=== PATIENT | female | born 1980 | race Caucasian/White ===

== ENCOUNTER → 2020-02-11 10:45 | Outpatient (BNVA) | payer BC, SELFPAY | PROVIDERS: Family Provider Nurse Practitioner Family; Referring Provider Family Medicine; Visit Provider Specialist | DX: M25.521 Pain in right elbow (principal); M25.531 Pain in right wrist; G89.29 Other chronic pain | CPT/HCPCS: 73080; 73110 ==

== ENCOUNTER 2022-03-29 15:46 | Emergency (ER) | payer BC, SELFPAY ==
[2022-03-29 16:03] VITALS: BP 144/83; PULSE 57; RESP 18; TEMP 36.4; O2SAT 98; BMI 40.7
--- NOTE | 2022-03-29 16:14 | ED_ITS ---
HPI - Abdominal Pain General: Chief Complaint: Abdominal Pain Stated Complaint: abd pain Time Seen by Provider: 03/29/22 16:13 Source: patient Mode of arrival: ambulatory Limitations: no limitations History of Present Illness: Patient is a very nice 41-year-old female presents to ED today with a complaint of right upper abdominal pain that she initially began noticing yesterday after eating lunch. Patient states pain came on fairly suddenly and progressively worsened. She does states she has had some waxing and waning periods where the pain was not severe but always seemed to exacerbate after eating. She states eating has made her feel incredibly nauseous. She has not had any active episodes of emesis. She has not noticed any changes to her bowel movements. Pain seems to be localized to the right upper quadrant with radiation up into her right shoulder and into her back. She does have a history of GERD in which she treats with omeprazole but states this feels differently. Patient has not been running fevers. She does not complain of chest pain, shortness of breath, difficulty breathing. MD elicited complaint: abdominal pain Pertinent past history: none Onset (ago): day(s) (yesterday) Pain Consistency: colicky Location: RUQ Quality: sharp Radiation: epigastric, back and other (R shoulder) Migration to: no migration Exacerbating factors: eating Relieving factors: nothing Associated Symptoms: Reports belching and nausea; Denies change in bowel habits, chills, diarrhea, dysuria, fever(s), hematochezia, hematuria, melena and vomiting Related Data: Patient : No Review of Systems Const: Denies: fever(s), chills, body aches, fatigue or malaise Card: Denies: chest pain Resp: Denies: dyspnea GI: Reports: abdominal pain, nausea and belching; Denies: vomiting, diarrhea, change in bowel habits, pain on defecation, hematochezia or melena : Denies: flank pain, difficulty voiding, dysuria or hematuria Musc: Denies: neck pain, back pain, extremity pain or joint pain Skin/Breast: Denies: rash Neuro: Denies: headache(s) or dizziness PFSH ED PFSH: Social History Smoking and tobacco status: current every day smoker cigarettes Alcohol intake: current Alcohol intake frequency: holidays/special occasions only Physical Exam Const: COMMON NORMALS: no acute distress, patient oriented x3, no limitations and alert GENERAL APPEARANCE: cooperative NUTRITIONAL APPEARANCE: obese morbidly obese ORIENTATION/CONSCIOUSNESS: Yes awake, Yes oriented to person, Yes oriented to place and Yes oriented to time Resp: COMMON NORMALS: normal respiratory effort and clear to auscultation bilaterally AUSCULTATION: clear to auscultation bilaterally Cardio: COMMON NORMALS: regular rate and regular rhythm RATE: regular rate RHYTHM: regular rhythm GI: COMMON NORMALS: Normal to inspection, nondistended, normoactive bowel sounds present, Soft to palpation and no masses INSPECTION: Yes normal to inspection AUSCULTATION: Yes normoactive bowel sounds PALPATION: Yes Soft to palpation, Yes Tenderness to palpation present (GI) (+ Zamora's ) Details: RUQ, No Guarding due to palpation present (GI) and No Rigid due to palpation : COMMON NORMALS: Yes no CVA tenderness BLADDER/KIDNEY EXAM: Yes no CVA tenderness Back/Pelvis: COMMON NORMALS: no CVA tenderness, thoracic and lumbar spine normal to inspection, no thoracic nor lumbar tenderness and thoraco-lumbar ROM normal Extremity: COMMON NORMALS: normal to inspection GENERAL: Yes normal exam except as noted Neuro: AG COMA SCALE: document GCS findings Ag coma scale eye opening: Spontaneous [place] coma scale verbal response: Orientated [place] coma scale motor response: Obey commands Ag coma scale total score: 15 COMMON NORMALS: patient oriented x3 SENSORIUM/ORIENTATION: Yes alert, Yes oriented to person, Yes oriented to place and Yes oriented to time Skin: COMMON NORMALS: no rashes or lesions noted GENERAL SKIN EXAM: no rashes or lesions noted Course Vital Signs: Vital signs: Vital Signs Temperature 97.5 F L 03/29/22 16:28 Pulse Rate 57 L 03/29/22 16:28 Respiratory Rate 18 03/29/22 16:28 Blood Pressure 144/83 03/29/22 16:28 Pulse Oximetry 98 03/29/22 16:28 Oxygen Delivery Me thod 03/29/22 16:28 MDM - Abdominal Pain Medical Decision Making Patient is a nice 41-year-old female here with right upper quadrant pain. History and physical exam is consistent with classic biliary colic. Her vital signs are stable. Her blood work is unremarkable. Her gallbladder ultrasound shows no acute findings. I think patient would benefit from general surgery fo llow-up and evaluation for elective cholecystectomy if symptoms persist. Recommend extremely bland diet until seen by them. We will provide her with pain/nausea medication she can use as needed. Lab Data : 03/29/22 16:27 03/29/22 16: Labs/Radiology: Radiology Impressions Gallbladder Ultrasound 03/29/22 16:21 IMPRESSION: No acute findings. Laboratory Results WBC 9.9 10^3/uL (4.0-10.0) 03/29/22 16: RBC 4.26 10^6/uL (4.1-5.3) 03/29/22 16: Hgb 13.3 g/dL (11.5-15.3) 03/29/22 16: Hct 38.7 % (37.0-47.0) 03/29/22 16: MCV 90.8 fl (81-99) 03/29/22 16: MCH 31.2 pg (28.0-34.0) 03/29/22 16: MCHC 34.4 g/dL (30.0-36.0) 03/29/22 16: RDW 13.3 % (12.1-15.1) 03/29/22 16: Plt Count 281 10^3/cmm (130-400) 03/29/22 16: MPV 11.1 fL (7.4-10.4) H 03/29/22 16: Neut % (Auto) 57.4 % 03/29/22 16: Lymph % (Auto) 31.5 % 03/29/22 16: [place] % (Auto) 7.3 % 03/29/22 16: Eos % (Auto) 2.8 % 03/29/22 16: Baso % (Auto) 0.8 % 03/29/22 16: Neut # (Auto) 5.68 10^3/uL (1.8-7.7) 03/29/22 16: Lymph # (Auto) 3.1 10^3/uL (0.8-4.8) 03/29/22 16: [place] # (Auto) 0.7 10^3/uL (0.2-0.9) 03/29/22 16:27 Eos # (Auto) 0.3 10^3/uL (0.0-0.8) 03/29/22 16:27 Baso # (Auto) 0.1 10^3/uL (0.0-0.1) 03/29/22 16:27 Nucleated RBC % (auto) 0 % 03/29/22 16: Nucleated RBCs # 0.0 /100WBC 03/29/22 16:27 Sodium 141 mmol/L (136-145) 03/29/22 16:27 Potassium 4.4 mmol/L (3.5-5.1) 03/29/22 16:27 Chloride 106 mmol/L (98-107) 03/29/22 16: Carbon Dioxide 27 mmol/L (22-29) 03/29/22 16: Anion Gap 12.4 (5-19) 03/29/22 16:27 BUN 9 mg/dL (6-20) 03/29/22 16: Creatinine 0.7 mg/dL (0.5-0.9) 03/29/22 16: GFR Calculation 93.2 mL/min (90-130) 03/29/22 16:27 Glucose 93 mg/dL (65-115) 03/29/22 16: Calculated Osmolality 290 mOsm/kg (285-295) 03/29/22 16: Calcium 8.9 mg/dL (8.5-10.5) 03/29/22 16: Total Bilirubin 0.2 mg/dL (0.15-1.2) 03/29/22 16: AST 70 U/L (0-32) H 03/29/22 16:27 ALT 22 U/L (0-33) 03/29/22 16:27 Alkaline Phosphatase 44 U/L (35-105) 03/29/22 16:27 Total Protein 6.8 g/dL (6.6-8.7) 03/29/22 16: Albumin 4.1 g/dL (3.5-5.2) 03/29/22 16: Globulin 2.7 g/dL (1.3-4.6) 03/29/22 16: Lipase 29 U/L (13-60) 03/29/22 16:27 HCG, Qual Negative (Negative) 03/29/22 16:27 Urine Color Yellow (Yellow) 03/29/22 16:50 Urine Appearance Clear (CLEAR) 03/29/22 16:50 Urine pH 7 (5-7) 03/29/22 16:50 Ur Specific [place] 1.020 (1.005-1.030) 03/29/22 16:50 Urine Protein Neg (Negative) 03/29/22 16:50 Urine Glucose (UA) Norm (Normal) 03/29/22 16:50 Urine Ketones Negative (Negative) 03/29/22 16:50 Urine Blood 2+ (Negative) H 03/29/22 16:50 Urine Nitrate Negative (Negative) 03/29/22 16:50 Urine Bilirubin Neg (Negative) 03/29/22 16:50 Urine Urobilinogen Norm mg/dL (Negative) 03/29/22 16:50 Ur Leukocyte Esterase Negative (Negative) 03/29/22 16:50 Urine RBC 0-4 /hpf (0-2) H 03/29/22 16:50 Urine WBC 5-10 /hpf (0-5) H 03/29/22 16:50 Ur Squamous Epith Cells 5-10 /hpf (0-5) H 03/29/22 16:50 Amorphous Sediment Not Reportable 03/29/22 16:50 Urine Bacteria 1+ /hpf (NONE) H 03/29/22 16:50 Hyaline Casts 0-4 /lpf H 03/29/22 16:50 Urine Mucus 1+ /hpf 03/29/22 16:50 Discharge Plan Discharge Patient Disposition: Home Clinical Impression: Biliary colic Condition: Stable Prescriptions: New hydrocodone-acetaminophen 5-325 mg tablet 1 tab PO .q 4-6 PRN (Reason: pain) Qty: 20 0RF ondansetron 4 mg tablet,disintegrating 4 mg PO Q8H PRN (Reason: nausea and vomiting) Qty: 14 0RF No Action pantoprazole [Protonix] 40 mg tablet,delayed release (DR/EC) 40 mg PO DAILY methocarbamol 750 mg tablet 750 mg PO TID pregabalin [Lyrica] 50 mg capsule 50 mg PO TID phentermine 37.5 mg capsule 37.5 mg PO DAILY Rx Instructions: must administer 30 minutes before or 1-2 hours after breakfast ketorolac 10 mg tablet 10 mg PO Q6H PRN butalbital-acetaminophen 25-325 mg tablet 2 tab PO Q4H PRN lidocaine 5 % adhesive patch,medicated 1 patch TOPICAL DAILY Rx Instructions: leave on most painful area for up to 12 hrs Discharge Orders: Discharge ED (Routine); Ordered 03/29/22 Ordered By: Silvia Rodriguez Referrals: Luis Manuel Tripathi CPNP [Primary Care Provider] - Patient Instructions: Biliary Colic (ED), Opioid Safety Activity Restrictions/Additional Instructions: As we discussed you need to do as a bland of a diet as possible until seen by g eneral surgery. This includes no spicy, greasy, fatty foods. You may use pain and nausea medications as needed. Case management should contact you tomorrow or Sunday to set you up with your follow-up general surgery appointment. You need to return to the emergency department immediately for worsening or uncontrollable abdominal pain, repetitive episodes of vomiting or diarrhea, fevers, yellowing to your skin or eyes or any other concerns you may have. I hope you begin to feel better soon. Coding Level of Care Code ED [employer] for [employer] Exam Comprehensive
--- NOTE | 2022-03-29 16:21 | USR_ITS ---
PROCEDURE INFORMATION: Exam: US Abdomen, Limited; Right Upper Quadrant Exam date and time: 03/29/2022 4:28 PM Age: 41 years old Clinical indication: Nausea and vomiting; Patient HX: 24 hrs n/v. Abd tender; Additional info: Ruq pain, n/v TECHNIQUE: Imaging protocol: Real time ultrasound of the abdomen with image documentation. Limited exam focused on the right upper quadrant. COMPARISON: US gall bladder [id number] 02/01/2017 5:06 PM FINDINGS: Liver: Normal. No masses. Gallbladder: Normal. No gallstones. There is no gallbladder wall thickening. Biliary ducts: Normal. No stones. No dilation. Pancreas: Visualized pancreas is unremarkable. Right kidney: The right kidney measures 11.8 cm in length. No mass. No hydronephrosis. US/US gall bladder [id number] IMPRESSION: No acute findings.
[2022-03-29 16:28] VITALS: BP 144/83; PULSE 57; RESP 18; TEMP 36.4; O2SAT 98
[2022-03-29 16:34] LABS: Basophils # 0.1 10^3/uL (0.0-0.1); Basophils % 0.8 %; Eosinophils # 0.3 10^3/uL (0.0-0.8); Eosinophils % 2.8 %; Hematocrit 38.7 % (37.0-47.0); Hemoglobin 13.3 g/dL (11.5-15.3); Lymphocytes # 3.1 10^3/uL (0.8-4.8); Lymphocytes % 31.5 %; Mean Corpuscular HGB Conc 34.4 g/dL (30.0-36.0); Mean Corpuscular Hemoglobin 31.2 pg (28.0-34.0); Mean Corpuscular Volume 90.8 fl (81-99); Mean Platelet Volume 11.1 fL (7.4-10.4); Monocytes # 0.7 10^3/uL (0.2-0.9); Monocytes % 7.3 %; Neutrophils # 5.68 10^3/uL (1.8-7.7); Neutrophils % 57.4 %; Nucleated Red Blood Cells % 0 %; Platelet Count 281 10^3/cmm (130-400); Red Blood Count 4.26 10^6/uL (4.1-5.3); Red Cell Distribution Width 13.3 % (12.1-15.1); White Blood Count 9.9 10^3/uL (4.0-10.0)
[2022-03-29 16:55] LABS: HCG, Serum Qual Negative (Negative)
[2022-03-29 16:56] LABS: Alanine Aminotransferase 22 U/L (0-33); Albumin Level 4.1 g/dL (3.5-5.2); Alkaline Phosphatase 44 U/L (35-105); Anion Gap 12.4 (5-19); Aspartate Amino Transferase 70 U/L (0-32); Blood Urea Nitrogen 9 mg/dL (6-20); Calcium 8.9 mg/dL (8.5-10.5); Carbon Dioxide 27 mmol/L (22-29); Chloride 106 mmol/L (98-107); Creatinine Clr Calc Pharmacy 143.3109; Globulin 2.7 g/dL (1.3-4.6); Glomerular Filtration Rate 93.2 mL/min (90-130); Glucose 93 mg/dL (65-115); Lipase 29 U/L (13-60); Osmolality Calculated 290 mOsm/kg (285-295); Potassium 4.4 mmol/L (3.5-5.1); Sodium 141 mmol/L (136-145); Total Bilirubin 0.2 mg/dL (0.15-1.2); Total Protein 6.8 g/dL (6.6-8.7)
[2022-03-29] MEDS: ondansetron 2 mg/ML SDV 2 mL 4 MG IM (17:15)
[2022-03-29] MEDS: morphine 4 mg/mL SDV 1 mL IM (17:15)
[2022-03-29 17:26] LABS: Add Urine Microscopic? YES; Bilirubin Urine Neg (Negative); Blood Urine 2+ (Negative); Glucose Urine UA Norm (Normal); Ketones Urine Negative (Negative); Leukocyte Esterase Urine Negative (Negative); Nitrate Urine Negative (Negative); Protein Urine Neg (Negative); RBC Urine 0-4 /hpf (0-2); Urine Appearance Clear (CLEAR); Urine Color Yellow (Yellow); Urobilinogen Urine Norm (Negative); pH Urine 7 (5-7)
[2022-03-29 17:27] LABS: Add Urine Culture? Yes; Bacteria Urine 1+ /hpf; Hyaline Casts Urine 0-4 /lpf; Mucus Urine 1+ /hpf
--- NOTE | 2022-03-30 09:47 | DCPLANNER ---
Addendum entered by Korina Small 04/27/22 09:08: Patient had a follow up appointment at general surgery - patient did attend appointment Addendum entered by Korina Small 03/31/22 13:36: Patient has a follow up appointment scheduled for , April 13, 2022 at 1:[address] Mccarthy at general surgery. Clinic will call patient with appointment information. Original Note: manager review had message to schedule a follow up appointment for patient with general surgery. manager review sent patients information to the front office staff at general surgery. Patients information will be printed and reviewed. Clinic will call patient with appointment information.
== END 2022-03-29 17:24 | disposition home or self-care (01) ==
PROVIDERS: Emergency Provider Physician Assistant; PCP Registered Nurse
DX: K80.50 Calculus of bile duct without cholangitis or cholecystitis without obstruction (principal); F17.210 Nicotine dependence, cigarettes, uncomplicated
CPT/HCPCS: 76705; 80053; 81001; 83690; 84703; 85025; 87086; 96372; 99285; J2270; J2405

== ENCOUNTER 2022-08-09 08:57 | Outpatient (CLI) | payer BC, SELFPAY ==
--- NOTE | 2022-08-09 09:04 | MM_ITS ---
WS: [id number] Bilateral screening 3D tomosynthesis digital mammogram, 08/09/2022 Clinical Data: SCREENING Comparison: None. Findings: The breast parenchymal pattern shows fibroglandular tissue. No spiculated masses or clustered calcifi cations are seen. There are no secondary signs of carcinoma. MM/[place] [id number] Impression: 1. Negative bilateral mammogram with no prior exam for review. 2. Recommend annual screening mammograms. BIRADS: 1-Negative FOLLOW UP: 1 Year Follow-up The CAD raspberry checker was used.
== END 2022-08-09 08:58 | disposition home or self-care (01) ==
LOC: RAD 08:57
PROVIDERS: PCP Registered Nurse; Visit Provider Registered Nurse
DX: Z12.31 Encounter for screening mammogram for malignant neoplasm of breast (principal)
CPT/HCPCS: 77063; 77067